=== PATIENT | male | born 1985 | race Caucasian/White ===

== ENCOUNTER 2020-06-06 12:49 | Inpatient (IN) | payer BC ==
--- NOTE | 2020-06-06 13:10 | BHS.RME ---
Substance Use & Tx History - Substance Use History Heroin Substance amount: 3-4 bags Frequency of use: Daily Substance route: Inhalation (ex: sniffing or snorting) Date of Last Use: 06/06/20 Marijuana/Hashish Substance amount: 3 blunts Frequency of use: Daily Substance route: Smoking Date of Last Use: 06/06/20 Nicotine Substance amount: 10 cigs Frequency of use: Daily Substance route: Smoking (t) - Last Treatment Date of last treatment: First [facility] visit Physical/Psych/Mental Status - Behavior General Behavior: Increased activity (restlessness, agitation) Eye Contact: Normal - Cooperativeness Cooperativeness: Cooperative - Thinking Thought Processes: Tight Thought content: Future oriented - Physical Health Problems Is patient presently having any pain?: Yes (low back, withdrawal) Does patient presently have any injuries (include location): No Does patient currently have a fever: No COWS - Scale Resting Pulse: 1= [place] 81-100 Sweatin=Flushed/Facial Moisture Restless Observation: 1= Difficult to Sit Still Pupil Size: 0= Normal to Room Light Bone or Joint Aches: 1= Mild Discomfort Runny Nose/ Eye Tearin= Runny Nose/Eyes GI Upset > 30mins: 2= Nausea/Diarrhea Tremor Observation: 2= Slight Tremor Visible Yawning Observation: 0= None Anxiety or Irritability: 1=Feels Anxious/Irritable Goose Flesh Skin: 0=Smooth Skin COWS Score: 12
--- NOTE | 2020-06-06 13:49 | HP ---
COWS - Scale Resting Pulse: 1= [place] 81-100 Sweatin=Flushed/Facial Moisture Restless Observation: 1= Difficult to Sit Still Pupil Size: 0= Normal to Room Light Bone or Joint Aches: 1= Mild Discomfort Runny Nose/ Eye Tearin= Runny Nose/Eyes GI Upset > 30mins: 2= Nausea/Diarrhea Tremor Observation: 2= Slight Tremor Visible Yawning Observation: 0= None Anxiety or Irritability: 1=Feels Anxious/Irritable Goose Flesh Skin: 0=Smooth Skin COWS Score: 12 CIWA Score - Admission Criteria OASAS Guidelines: Admission for Medically Managed Detox: Requires at least one of the followin. CIWA greater than 12 2. Seizures within the past 24 hours 3. Delirium tremens within the past 24 hours 4. Hallucinations within the past 24 hours 5. Acute intervention needed for co occurring medical disorder 6. Acute intervention needed for co occurring psychiatric disorder 7. Severe withdrawal that cannot be handled at a lower level of care (continued vomiting, continued diarrhea, abnormal vital signs) requiring intravenous medication and/or fluids 8. Admitting History and Physical - Admission Chief Complaint: heroin detox History of Present Illness: 34 yo with 10 year h/o of using opioids- started with percocets after hand surgery and then switched to heroin in 2014. Was in a methadone program from [id number], was without using for 8 months and relapsed a few months ago. Was in a methadone program at [facility]- last dose 70mg last dosing 06/2019. Says he wanted to to do inpt detox. heroin 3-4 bags/day, sniffing. this am Cannabis use- 3-4 cigs cigarettes 10/day h/o asthma pump. No regular PCP [facility]- THC, fen, Mop MICHAEL- negative Admission ROS BHS - HPI Chief Complaint: heroin detox Allergies/Adverse Reactions: Allergies Allergy/AdvReac Type Severity Reaction Status Date / Time No Known Allergies Allergy Verified 06/06/20 14:03 Exam Limitations: No Limitations - Ebola screening Have you traveled outside of the country in the last 21 days: No Have you had contact with anyone from an Ebola affected area: No Have you been sick,other than usual withdrawal symptoms: No Do you have a fever: No - Review of Systems Constitutional: No Symptoms Reported EENT: reports: No Symptoms Reported Respiratory: reports: No Symptoms reported Cardiac: reports: No Symptoms Reported GI: reports: No Symptoms Reported : reports: No Symptoms Reported Musculoskeletal: reports: No Symptoms Reported Integumentary: reports: No Symptoms Reported Neuro: reports: No Symptoms reported Endocrine: reports: No Symptoms Reported Hematology: reports: No Symptoms Reported Psychiatric: reports: No Sypmtoms Reported Other Systems: Reviewed and Negative Patient History - Smoking Cessation Smoking history: Current every day smoker Have you smoked in the past 12 months: Yes Aproximately how many cigarettes per day: 10 Hx Chewing Tobacco Use: No Initiated information on smoking cessation: Yes 'Breaking Loose' booklet given: 06/06/20 Admission Physical Exam BHS - Physical General Appearance: Yes: Moderate Distress HEENTM: Yes: Within Normal Limits, EOMI, Hearing grossly Normal, Normal Voice, NICOLA Respiratory: Yes: Within Normal Limits, Chest Non-Tender, Lungs Clear Cardiology: Yes: Within Normal Limits, Regular Rhythm, S1, S2 (1/6 systolic murmur heard at LSB), Systolic Murmur Abdominal: Yes: Within Normal Limits, Normal Bowel Sounds Musculoskeletal: Yes: Within Normal Limits, full range of Motion, Gait Steady Extremities: Yes: Within Normal Limits, Normal Capillary Refill Integumentary: Yes: Within Normal Limits Lymphatic: Yes: Within Normal Limits - Diagnostic (1) Opioid use disorder Current Visit: Yes Status: Acute (2) Cannabis use disorder, mild, abuse Current Visit: Yes Status: Acute Breathalyzer - Breathalyzer Breathalyzer: 0 Urine Drug Screen - Test Device Lot number: [id number] Expiration date: 12/18/21 - Control Is test valid?: Yes - Results Drug screen NEGATIVE: No Urine drug screen results: THC-Marijuana, FEN-Fentanyl, MOP-Opiates Inpatient Rehab Admission - Rehab Decision to Admit Inpatient rehab admission?: No
[2020-06-06] MEDS ORDERED: cloNIDine HCL 0.1 MG TABLET PO PRN (13:54)
[2020-06-06] MEDS ORDERED: METHADONE HCL 10 MG TABLET (FOR DETOX USE ONLY) PO ONE (13:54)
[2020-06-06] MEDS ORDERED: diazePAM 5 MG TABLET PO PRN (13:55)
[2020-06-06] MEDS ORDERED: ACETAMINOPHEN 325 MG TABLET (FP) PO PRN ×2 (13:55)
[2020-06-06] MEDS ORDERED: MAGNESIUM HYDROX 2400MG/30ML ORAL SUSPENSION 30 ML CUP PO PRN (13:55)
[2020-06-06] MEDS ORDERED: MAG HYDROX/AL HYDROX/SIMETH 30 ML UNIT-DOSE CUP PO PRN (13:55)
[2020-06-06] MEDS ORDERED: MENTHOL/PHENOL 1 EACH UD MM PRN (13:55)
[2020-06-06] MEDS ORDERED: MAGNESIUM CITRATE 300 ML BOTTLE PO PRN (13:55)
[2020-06-06] MEDS ORDERED: IBUPROFEN 400 MG TABLET (FP) PO PRN (13:55)
[2020-06-06] MEDS ORDERED: ONDANSETRON *ODT* 4 MG TABLET SL PRN (13:55)
[2020-06-06] MEDS ORDERED: METHOCARBAMOL 500 MG TABLET PO PRN (13:55)
[2020-06-06] MEDS ORDERED: BISMUTH SUBSALICYLATE 262 MG/15 ML BTL PO PRN (13:55)
[2020-06-06] MEDS ORDERED: METHADONE HCL 10 MG TABLET (FOR DETOX USE ONLY) ONE (14:12)
[2020-06-06 14:14] VITALS: BMI 23.3
[2020-06-06] MEDS: hydrOXYzine PAMOATE 25 MG CAPSULE (FP) PO SCH ×3 (15:37→22:21)
[2020-06-06] MEDS: NICOTINE POLACRILEX 2 MG GUM BUC PRN ×2 (18:01→23:09)
[2020-06-06] MEDS: MELATONIN 5 MG TABLETS PO SCH (22:21)
[2020-06-06] MEDS: THIAMINE HCL 100 MG TABLET (FP) PO SCH (22:21)
[2020-06-06] MEDS: traZODone HCL 50 MG TABLET (FP) PO PRN (23:11)
[2020-06-07] MEDS: hydrOXYzine PAMOATE 25 MG CAPSULE (FP) PO SCH ×5 (05:30→22:52)
[2020-06-07] MEDS ORDERED: NICOTINE 7 MG/24 HOURS TOPICAL PATCH TD SCH (10:00)
[2020-06-07] MEDS ORDERED: METHADONE (DETOX) 20 MG, METHADONE (DETOX) 5 MG PO ONE (10:00)
[2020-06-07] MEDS ORDERED: METHADONE HCL 10 MG TABLET (FOR DETOX USE ONLY) ONE (10:12)
[2020-06-07] MEDS ORDERED: METHADONE HCL 5 MG TABLET (FOR DETOX USE ONLY) ONE (10:12)
[2020-06-07] MEDS: PRENATAL VITAMINS W/ FOLIC ACID TABLET (FP) PO SCH (10:29)
[2020-06-07] MEDS: NICOTINE 14 MG/24 HOURS TOPICAL PATCH TD SCH (10:29)
--- NOTE | 2020-06-07 11:37 | PN ---
BHS COWS - Scale Resting Pulse: 0= MD 80 or Below Sweatin= Beads of Sweat on Face Restless Observation: 1= Difficult to Sit Still Pupil Size: 0= Normal to Room Light Bone or Joint Aches: 2= Severe Diffuse Aches Runny Nose/ Eye Tearin= None GI Upset > 30mins: 0= None Tremor Observation of Outstretched Hands: 0= None Yawning Observation: 2= >3x During Session Anxiety or Irritability: 2=Irritable/Anxious Goose Flesh Skin: 0=Smooth Skin COWS Score: 10 S Progress Note (SOAP) Subjective: c/o muscle aches, anxiety, irritability, and sweats. Objective: 06/07/20 11:36 Vital Signs 06/07/20 06/07/20 06:28 08:50 Temperature 97.5 F L 97.1 F L Pulse Rate 67 70 Respiratory 18 18 Rate Blood Pressure 139/76 139/87 O2 Sat by Pulse 99 Oximetry (%) Labs pending. Assessment: 06/07/20 11:36 AOX3, in no acute respiratory distress. Full ROM, ambulating in the unit. Withdrawal symptoms. Plan: continue detox.
[2020-06-07 11:43] LABS: HEMATOCRIT 40.8 % (35.4-49); HEMOGLOBIN 13.7 GM/dL (11.7-16.9); MCH 28.6 pg (25.7-33.7); MCHC 33.5 g/dl (32.0-35.9); MEAN CELL VOLUME 85.4 fl (80-96); MEAN PLT VOLUME 9.6 fl (7.5-11.1); PLATELET COUNT 214 K/MM3 (134-434); RBC 4.78 M/mm3 (4.00-5.60); RDW 14.1 % (11.9-15.9); WHITE BLOOD COUNT 10.1 K/mm3 (4.0-10.0)
[2020-06-07 12:05] LABS: BLOOD UREA NITROGEN 11.2 mg/dL (7-18); CALCIUM 9.4 mg/dL (8.5-10.1); CREATININE 1.1 mg/dL (0.55-1.3); POTASSIUM 3.5 mmol/L (3.5-5.1)
[2020-06-07 12:14] LABS: BILIRUBIN,TOTAL 0.6 mg/dL (0.2-1); TOT PROT 7.8 g/dl (6.4-8.2)
[2020-06-07] MEDS: NICOTINE POLACRILEX 2 MG GUM BUC PRN ×2 (13:09→18:25)
--- NOTE | 2020-06-07 16:15 | EKG ---
Test Reason : Blood Pressure : / mmHG Vent. Rate : 088 BPM Atrial Rate : 088 BPM P-R Int : 166 ms QRS Dur : 098 ms QT Int : 318 ms P-R-T Axes : 058 057 -18 degrees QTc Int : 384 ms NORMAL SINUS RHYTHM NONSPECIFIC ST AND T WAVE ABNORMALITY ABNORMAL ECG NO PREVIOUS ECGS AVAILABLE Confirmed by MD Leon, Flavio ([id number]) on 06/07/2020 4:14:36 PM Referred By: Confirmed By:Flavio Quintero MD
[2020-06-07] MEDS: THIAMINE HCL 100 MG TABLET (FP) PO SCH (22:52)
[2020-06-07] MEDS: MELATONIN 5 MG TABLETS PO SCH (22:53)
[2020-06-08] MEDS: traZODone HCL 50 MG TABLET (FP) PO PRN (00:36)
[2020-06-08] MEDS: hydrOXYzine PAMOATE 25 MG CAPSULE (FP) PO SCH ×4 (06:18→17:27)
[2020-06-08] MEDS: NICOTINE 14 MG/24 HOURS TOPICAL PATCH TD SCH (09:37)
[2020-06-08] MEDS: PRENATAL VITAMINS W/ FOLIC ACID TABLET (FP) PO SCH (09:38)
[2020-06-08] MEDS: NICOTINE POLACRILEX 2 MG GUM BUC PRN ×3 (09:38→17:27)
[2020-06-08] MEDS ORDERED: METHADONE HCL 10 MG TABLET (FOR DETOX USE ONLY) PO ONE (10:00)
--- NOTE | 2020-06-08 13:26 | PN ---
BHS COWS - Scale Resting Pulse: 0= [place] 80 or Below Sweatin= Chills/Flushing Restless Observation: 0= Sits Still Pupil Size: 1= Pupils >than Normal Bone or Joint Aches: 1= Mild Discomfort Runny Nose/ Eye Tearin= Nasal Congestion GI Upset > 30mins: 1= Stomach Cramp Tremor Observation of Outstretched Hands: 1= Tremor [place], Not Seen Yawning Observation: 1= 1-2x During Session Anxiety or Irritability: 1=Feels Anxious/Irritable Goose Flesh Skin: 0=Smooth Skin COWS Score: 8 BHS Progress Note (SOAP) Subjective: 34 years old male was admitted on 06/06/20 for opiate withdrawal sx management treating with methadone detox regiment Vital Signs - 24 hr 06/07/20 06/07/20 06/08/20 16:28 20:23 06:48 Temperature 97.3 F L 98.0 F 97.3 F L Pulse Rate 61 61 65 Respiratory 18 18 18 Rate Blood Pressure 142/91 143/99 153/102 H O2 Sat by Pulse 100 99 Oximetry (%) 06/08/20 06/08/20 08:38 12:37 Temperature 97.8 F 97.7 F Pulse Rate 66 64 Respiratory 18 18 Rate Blood Pressure 153/93 143/85 O2 Sat by Pulse 100 Oximetry (%) bp elevation mr valdez denies history of hypertension initiate amlodipine 10 mg po daily clonidine 0.1 mg po q6h prn for hypertension Objective: 06/08/20 13:28 opiate withdrawal Assessment: 06/08/20 13:28 Laboratory Tests 06/06/20 06/06/20 06/06/20 14:15 14:15 14:33 WBC RBC Hgb Hct MCV MCH MCHC RDW Plt Count MPV Sodium Potassium Chloride Carbon Dioxide Anion Gap BUN Creatinine Est GFR (CKD-EPI)AfAm Est GFR (CKD-EPI)NonAf Random Glucose Calcium Total Bilirubin AST ALT Alkaline Phosphatase Total Protein Albumin Syphilis Serology Non-reactive COVID-19 (REYMUNDO) Not detected HIV Ag/Ab Combo Qual Negative 06/07/20 06/07/20 06:05 06:05 WBC 10.1 H RBC 4.78 Hgb 13.7 Hct 40.8 MCV 85.4 MCH 28.6 MCHC 33.5 RDW 14.1 Plt Count 214 MPV 9.6 Sodium 142 Potassium 3.5 Chloride 108 H Carbon Dioxide 27 Anion Gap 7 L BUN 11.2 Creatinine 1.1 Est GFR (CKD-EPI)AfAm 100.97 Est GFR (CKD-EPI)NonAf 87.12 Random Glucose 133 H Calcium 9.4 Total Bilirubin 0.6 AST 13 L ALT 21 Alkaline Phosphatase 60 Total Protein 7.8 Albumin 4.0 Syphilis Serology COVID-19 (REYMUNDO) HIV Ag/Ab Combo Qual glucose elevation fasting pending 06/08/20 13:30 06/08/20 13:30 hypertension glucose elevation Plan: methadone regiment amlodipine 10 mg po fasting pending
[2020-06-08] MEDS ORDERED: cloNIDine HCL 0.1 MG TABLET PO PRN (13:27)
[2020-06-08] MEDS ORDERED: amLODIPine BESYLATE 10 MG TABLET (FP) PO SCH (13:30)
--- NOTE | 2020-06-08 18:42 | DS ---
[facility] Detox Discharge Summary Admission Date: 06/06/20 Discharge Date: 06/08/20 - History Additional Comments: Patient is leaving against medical advice. He reports that he has a family problem that needs his attention. Risks and consequences of his action reinforced. Patient is alert and oriented x 3, ambulates independently, not in acute distress and vital signs stable. Patient signed the AMA form and was escorted off the floor by security. Pertinent Past History: Opioid dependence - Physical Exam Results Vital Signs: Vital Signs Temperature 97.7 F 06/08/20 12:37 Pulse Rate 64 06/08/20 12:37 Respiratory Rate 18 06/08/20 12:37 Blood Pressure 143/85 06/08/20 12:37 O2 Sat by Pulse Oximetry (%) 100 06/08/20 12:37 Laboratory Last Values WBC 10.1 K/mm3 (4.0-10.0) H 06/07/20 06:05 RBC 4.78 M/mm3 (4.00-5.60) 06/07/20 06:05 Hgb 13.7 GM/dL (11.7-16.9) 06/07/20 06:05 Hct 40.8 % (35.4-49) 06/07/20 06:05 MCV 85.4 fl (80-96) 06/07/20 06:05 MCH 28.6 pg (25.7-33.7) 06/07/20 06:05 MCHC 33.5 g/dl (32.0-35.9) 06/07/20 06:05 RDW 14.1 % (11.9-15.9) 06/07/20 06:05 Plt Count 214 K/MM3 (134-434) 06/07/20 06:05 MPV 9.6 fl (7.5-11.1) 06/07/20 06:05 Sodium 142 mmol/L (136-145) 06/07/20 06:05 Potassium 3.5 mmol/L (3.5-5.1) 06/07/20 06:05 Chloride 108 mmol/L (98-107) H 06/07/20 06:05 Carbon Dioxide 27 mmol/L (21-32) 06/07/20 06:05 Anion Gap 7 MMOL/L (8-16) L 06/07/20 06:05 BUN 11.2 mg/dL (7-18) 06/07/20 06:05 Creatinine 1.1 mg/dL (0.55-1.3) 06/07/20 06:05 Est GFR (CKD-EPI)AfAm 100.97 06/07/20 06:05 Est GFR (CKD-EPI)NonAf 87.12 06/07/20 06:05 Random Glucose 133 mg/dL (74-106) H 06/07/20 06:05 Calcium 9.4 mg/dL (8.5-10.1) 06/07/20 06:05 Total Bilirubin 0.6 mg/dL (0.2-1) 06/07/20 06:05 AST 13 U/L (15-37) L 06/07/20 06:05 ALT 21 U/L (13-61) 06/07/20 06:05 Alkaline Phosphatase 60 U/L (45-117) 06/07/20 06:05 Total Protein 7.8 g/dl (6.4-8.2) 06/07/20 06:05 Albumin 4.0 g/dl (3.4-5.0) 06/07/20 06:05 Syphilis Serology Non-reactive (NONREACTIVE) 06/06/20 14:15 COVID-19 (REYMUNDO) Not detected (Not Detected) 06/06/20 14:33 HIV Ag/Ab Combo Qual Negative (NEGATIVE) 06/06/20 14:15 Pertinent Admission Physical Exam Findings: Opioid dependence - Medication Discharge Medications: Ambulatory Orders Albuterol Sulfate Inhaler - [Ventolin Hfa Inhaler -] 2 inh PO Q4H 06/06/20 - Diagnosis (1) Cannabis use disorder, mild, abuse Current Visit: Yes Status: Chronic (2) Opioid use disorder Current Visit: Yes Status: Chronic (3) Opioid dependence, uncomplicated Current Visit: Yes Status: Chronic - AMA Did Patient Leave Against Medical Advice: Yes
[2020-06-08 19:23] VITALS: BP 145/99; PULSE 68; TEMP 97.3
[2020-06-09] MEDS ORDERED: METHADONE (DETOX) 10 MG, METHADONE (DETOX) 5 MG PO ONE (10:00)
[2020-06-10] MEDS ORDERED: METHADONE HCL 10 MG TABLET (FOR DETOX USE ONLY) PO ONE (10:00)
[2020-06-11] MEDS ORDERED: METHADONE HCL 5 MG TABLET (FOR DETOX USE ONLY) PO ONE (06:00)
== END 2020-06-08 19:22 | disposition home or self-care (01) | DRG 773 ==
LOC: YASAS 12:49 → Y3N 14:26
PROVIDERS: ADMIT Allergy & Immunology; ATTEND Allergy & Immunology
PROC: HZ2ZZZZ Detoxification Services for Substance Abuse Treatment (ICD-10-PCS; principal; 2020-06-06)
DX: F11.23 Opioid dependence with withdrawal (principal); F12.20 Cannabis dependence, uncomplicated; F17.210 Nicotine dependence, cigarettes, uncomplicated; I10 Essential (primary) hypertension; R73.9 Hyperglycemia, unspecified
CPT/HCPCS: 36415; 80053; 85027; 86780; 87389; 93005; 93010; U0003